=== PATIENT | male | born 1995 | race Caucasian/White ===

== ENCOUNTER 2019-03-16 20:14 | Outpatient (AMB) | payer SELFPAY ==
--- NOTE | 2019-03-16 20:15 | URCARE_ITS ---
Intake Ht./Wt. Decline/Exclusions Patient Declined Height and Weight this visit: No PT Meets exclusion criteria: No Vital Signs 03/16/19 20:19 Height 5 ft 5 in Height Method Measured Weight 81.193 kg Weight Measurement Method Standing Scale BMI 29.7 Temp 99.1 F Temp Source Temporal Artery Scan Pulse 82 Pulse Source Monitor Respiration 19 BP 150/83 H Blood Pressure Source Automatic Cuff Blood Pressure Location Right Upper Arm Position Sitting Pulse Oximetry (%) 99 Oxygen Delivery Method Room Air Intake Zika Travel: No Been in contact w/anyone who has been Dx w/Zika Virus: No Been in contact w/anyone sick during travel outside country: No Patient >or equal to 18 years BMI outside of range 18.5-24.9: Yes Visit Reasons: UC Abdominal pain Primary Care Provider: Omid Stevenson Is patient in pain?: Yes Pain Location:: abd Russell-Sandoval/Numerical: 6 Pain Scale Used: Numeric (1 - 10) Triage Triage Allergy / Med Rec Allergies Penicillins Allergy (Mild, Verified 03/16/19 20:19) rash Medication Reconciliation famotidine 40 mg tablet 40 mg PO QHS 14 Days #14 tab 03/16/19 [Rx] Band Placement: Patient Identification Arrival Mode of Arrival: Private Vehicle Method of Arrival: Ambulatory Accompanied By: Self Language Preferred Language: [place] Automatic I Threading Machine Feeder Required: No Social History Alcohol / Drugs Hx Alcohol Use: No Hx Substance Use: No Safety Do You Feel Safe at Home: Yes Authorities Contacted: N/A [place] Fall Scale Special Populations Patient Comatose, Paralyzed or Immobile: No Patient Under the Age of 44 Years Old: No Assessment History of falling; immediate or within 3 months: No Secondary diagnosis: No Ambulatory aid: None IV Infusion: No Gait/Transferring: Normal/bedrest/immobile Mental Status: Oriented to own ability Score Score: 0 Risk Level/Action Risk Level: Low Risk Action: Good Basic Nursing Care Fall Star Level 1 Fall Star Level 1: Yes Patient Education Topic Education Topics: Plan of Care Teaching Recipient: Patient Readiness, Motivation to Learn: Active Methods: Verbal instruction Educ Materials Suggested by INFO Button/Rx Monograph Given: No Response: Verbalize Understanding Automatic I Threading Machine Feeder Required: No Past Medical History Reviewed and agree with Nursing documentation.: Yes HPI Abdominal Pain HPI History of Present Illness Associated symptoms: Denies vomiting Chronic Abdominal Pain History of Present Illness Associated symptoms: Denies chills or vomiting HPI Comments Details: Patient presents with epigastric pain he states that he has a chronic history of epigastric pain and has been diagnosed with H. pylori he states that he was given antibiotic for this about a year ago but he did not take his antibiotics as prescribed by his physician for his H. pylori. Epigastric pain started earlier on this morning and has persisted throughout the day he denies any other symptoms Review of Systems (UC) Const Constitutional: Denies body ache and Denies chills ENT Ears. Nose, Mouth, and Throat: Denies bad breath, Denies mouth pain and Denies pain with swallowing Card Cardiovascular: Denies chest pain and Denies chest pain at rest Resp Respiratory: Denies chest congestion and Denies cough GI Gastrointestinal: Reports abdominal pain, Reports belching, Reports bloating and Reports indigestion; Denies change in stools, Denies constant urge to pass stool, Denies pain with swallowing, Denies vomiting and Denies vomiting blood Exam (UC) Limitations: no limitations General Appearance: alert, in no apparent distress, comfortable, cooperative, healthy appearing, well developed and well groomed Head exam: atraumatic, normocephalic and normal inspection ENT exam: Present normal exam, normal external ear exam, TM's normal bilaterally, normal oropharynx and mucous membranes moist SPO2%: 99% Respiratory exam: Present normal lung sounds bilaterally, normal respiratory effort, able to speak in complete sentences and clear to ascultation bilaterally Cardiovascular exam: Present regular rate and regular rhythm Abdominal Exam: Present normal bowel sounds Abdominal tenderness: Present epigastrium and mild Office Procedures UC Level of Care Nursing/Assessment/Reassessment Patient Status: Established Patient Nursing Assessment/Reassessment: Triage Asessment, Initial Vital Signs and RN General Assessments Coordination of Care: DC Instructions Simple Medications: PO Meds Established Patient Charge Established Patient Point Assignment: 45 Established Patient Point Assignment: EP Level 2 (40-75) Procedures: Pulse Ox reading: Yes Office Meds Lidocaine Viscous Performing Provider: Briana Samano PA-C Administered by: Tanya Galarza RN on 03/16/19 20:38 Dose Route Admin Location Lot Number Expiration Date NDC Manager Utility 20 mL PO Maalox Advanced 200-200-20 mg/5 mL Performing Provider: Briana Samano PA-C Administered by: Tanya Galarza RN on 03/16/19 20:38 Dose Route Admin Location Lot Number Expiration Date ND Manager Utility 30 mL PO ondansetron Performing Provider: Briana Samano PA-C Administered by: Tanya Galarza RN on 03/16/19 20:38 Dose Route Admin Location Lot Number Expiration Date ND Manager Utility 4 mg PO Assessment and Plan Assessment & Plan (1) Gastritis: Qualifiers: Chronicity: chronic Gastritis bleeding: without bleeding Gastritis type: unspecified gastritis Qualified Code(s): K29.50 - Unspecified chronic gastritis without bleeding Plan - Briana Samano PA-C: Take medication as prescribed follow-up with your regular doctor in 3 to 5 days for recheck of H. pylori (2) GERD (gastroesophageal reflux disease): Qualifiers: Esophagitis presence: without esophagitis Qualified Code(s): K21.9 - Gastro-esophageal reflux disease without esophagitis Plan - Briana Samano PA-C: Patient prescribed follow-up with your regular doctor in 3 to 5 days for recheck of H. pylori Plan Details Other Medications: New: famotidine (Pepcid) 40 mg PO QHS 14 days 14 tabs 0RF Discontinued: Maalox Advanced 200-200-20 mg/5 mL (alum-mag hydroxide-simeth) Discontinued Reason: Office Medication has been Documented as given 30 mL PO ONCE 30 mL 0RF NS Lidocaine Viscous 2% (lidocaine HCl) Discontinued Reason: Office Medication has been Documented as given 20 mL PO ONCE 20 mL 0RF NS ondansetron Discontinued Reason: Office Medication has been Documented as given 4 mg PO ONCE 1 tab 0RF Other Orders: Orders: Lidocaine Viscous 2 % mucosal solution (lidocaine HCl) Today Maalox Advanced 200 mg-200 mg-20 mg/5 mL oral suspension (alum-mag hydrox Today ondansetron 4 mg disintegrating tablet Today Primary Care Provider: Omid Stevenson Instructions: ED GERD Additional Information PA/HOME RESTORATION SERVICE SUPERVISOR Supervising Physician: Jimmy Blakely DC Evaluation Discharge Information Seen, Treated and Released by Provider: No Left Prior to Receiving Discharge Instructions: No Transfer to Outside Facility: No Vital Signs Vitals Signs N/A: Yes Discharge Information Condition on Discharge: Stable Mode of Discharge: Ambulatory Discharge Transportation: Private Vehicle Instructions Automatic I Threading Machine Feeder Required: No Discharge Instructions Given To: Patient Was Follow up Care Ordered: Yes Verbalizes Understanding of Discharge Instructions: Yes [facility] information card provided?: No Patient plan follow up w/PCP for [facility]: No
[2019-03-16 20:19] VITALS: BP 150/83; PULSE 82; RESP 19; TEMP 37.3; O2SAT 99; BMI 29.7
== END 2019-03-16 21:17 | disposition home or self-care (01) ==
PROVIDERS: Visit Provider Physician Assistant
DX: I10 Essential (primary) hypertension (principal)

== ENCOUNTER 2024-07-07 13:00 | Outpatient (RCR) | payer MEDICAID, SELFPAY ==
--- NOTE | 2024-06-16 16:11 | PT.OIERPT ---
PT OP Initial Eval Patient Information Outpatient Physical Therapy Treatment Date: 06/16/24 Visit Reasons: LOW BACK PAIN Medical Diagnosis: Back Pain Treatment Dx #1: Back Pain Start of Care: 06/16/24 Date of Onset: Feb 2024 Smoking Status Smoking Status: Never smoker Initial Assessment Subjective: Pt is a 28 y/o male reports of chronic back pain with intermittent pain down the legs. Pt has limitation with sitting, standing, walking, chores, self care, and performing recreational activities. MRI has not been done at this time. Objective: L/S AROM: all motions are WFL Hip PROM: all motions are WFL except IR Hip MMTs: grossly 3/5 Special Test (+) slump (+) R SLR Assessment: Pt demonstrate back pain consistent with possible nerve root impingement leading to difficulty with ADLs. Pt will attempt physical therapy if pain persist Pt will be refer back to provider for further consultation. Short Term and Shelter Advocate Goals 1) Increase L/S AROM WNL in 6 wks to be able to perform chores 2) Decrease back pain to 2/10 in 6 wks to be able to sit and stand more than 30 mins 3) Increase core strengthening WFL in 6 wks to be able to perform lifting activities 4) Increase hip MMTs grossly to 4-/5 in 6 wks to be able to perform recreational activities 5) Indep with HEP Treatment Plan 1) Manual Therapy 2) Therapeutic Activities 3) Therapeutic Exercises 4) Modalities (ice, heat, traction) Frequency and Duration: 2 x wk for 6 wks Certification Dates: 06/16/24 to 09/16/24 Procedure Charges OP PT Eval Mod Complex 30 minutes: Yes
--- NOTE | 2024-06-23 11:07 | PT.ODAYNRPT ---
PT Outpatient Daily Note OP Daily Note Outpatient Physical Therapy Treatment Date: 06/23/24 Visit Reasons: LOW BACK PAIN Subjective: Pt's back ache and is sore. Pt still has pain with certain activities. Objective: Please see flow chart for list of ther ex performed Assessment: slight increase in radicular pain during standing extension; however, cues to work up to the pain with better tolerance Plan: Continue with PT Length of Time (minutes) of Treatment: 30 Minutes Procedure Charges Therapeutic Exercise 30 minutes: Yes
--- NOTE | 2024-06-25 11:07 | PT.ODAYNRPT ---
PT Outpatient Daily Note OP Daily Note Outpatient Physical Therapy Treatment Date: 06/25/24 Visit Reasons: LOW BACK PAIN Subjective: Pt c/o 7/10 pain and pain on posterior L thigh. Objective: Please see flow sheet for ther ex list. Assessment: Pt instructed on prone lumbar extension exercise, responded with centralization of L LE symptoms. Pt encouraged to perform repeated lumbar extension exercise for home, given print out with instructions. Plan: Continue with POC. Length of Time (minutes) of Treatment: 30 Minutes Procedure Charges Therapeutic Exercise 30 minutes: Yes
--- NOTE | 2024-06-30 12:05 | PT.ODAYNRPT ---
PT Outpatient Daily Note OP Daily Note Outpatient Physical Therapy Treatment Date: 06/30/24 Visit Reasons: LOW BACK PAIN Subjective: Pt's back is worsening and more sore. Pt mentioned he's tossing and turning while sleeping at home. Pt is unsure if it's related to physical therapy. Objective: Please see flow chart for list of ther ex performed Assessment: unable to complete PPT exercise due to increase right lower back pain. Pt tolerate all exercises and instructed to inform PT if increase in pain/soreness is related to physical therapy exercises. Pt gave verbal consent. Plan: Continue with PT Length of Time (minutes) of Treatment: 30 Minutes Procedure Charges Therapeutic Exercise 30 minutes: Yes
--- NOTE | 2024-07-02 11:56 | PT.ODAYNRPT ---
PT Outpatient Daily Note OP Daily Note Outpatient Physical Therapy Treatment Date: 07/02/24 Visit Reasons: LOW BACK PAIN Subjective: No changes to report at this time, pt c/o LBP and pain down BLE that fluctuates. Objective: Please see flow sheet for ther ex list. Assessment: Pt demonstrates poor activity tolerance due to pain response. Plan: Continue with POC, assess response to treatment. Length of Time (minutes) of Treatment: 3,030 Minutes Procedure Charges Therapeutic Exercise 30 minutes: Yes
--- NOTE | 2024-07-07 14:12 | PT.ODS1RPT ---
PT OP Progress/Discharge Note Date of Service: 07/07/24 Progress Note/DC Note Progress Note/Discharge Note: DC Note Patient Information Visit Reasons: LOW BACK PAIN Medical Diagnosis: Back Pain Treatment Dx #1: Back Pain Service Discharge Date: 07/07/24 Status Subjective: Pt's back is better but continues to have pain down his legs intermittently. Due to patient Pt still has difficulty with sitting, standing, chores, self care, and performing recreational activities. Objective: L/S AROM: all motions are WFL Hip PROM: all motions are WFL except IR Hip MMTs: grossly 3+/5 Special Test (+) slump (+) SLR Assessment: Pt demonstrate minimal improvement with L/S mobility, however, no change in LEs pain leading to difficulty with ADLs. Pt will no longer benefit from physical therapy due to minimal progress towards goals. Recommend L/S MRI to help rule in/out nature of pain. Pt was instructed on HEP last session and educated to continue exercises to maintain overall mobility. Pt performed all exercises safely, thank you for your referrals. Plan: D/C home with HEP and follow up with MD PINO Recommend L/S MRI Procedure Charges Therapeutic Exercise 30 minutes: Yes
== END 2024-07-14 23:59 | disposition home or self-care (01) ==
LOC: CPTX 13:00
PROVIDERS: PCP Physician Assistant; Referring Provider Physician Assistant; Visit Provider Physician Assistant
DX: M54.50 Low back pain, unspecified (principal); M79.605 Pain in left leg; M79.604 Pain in right leg; R26.2 Difficulty in walking, not elsewhere classified; G89.29 Other chronic pain
CPT/HCPCS: 97110; 97162